=== PATIENT | male | born 1950 | race Caucasian/White ===

== ENCOUNTER → 2020-05-22 | Outpatient (CLI) | payer MEDICARE, MEDICAID | END | disposition home or self-care (01) | LOC: LAB 10:24 | PROVIDERS: ATTEND Specialist | DX: Z01.812 Encounter for preprocedural laboratory examination (principal); Z20.828 Contact with and (suspected) exposure to other viral communicable diseases | CPT/HCPCS: 87426 ==

== ENCOUNTER 2020-05-23 06:10 | Day surgery (SDC) | payer MEDICARE, MEDICAID ==
[2020-05-23] MEDS ORDERED: FENTANYL CITRATE/PF 50MCG/ML 5ML VIAL ONE (07:31)
[2020-05-23] MEDS ORDERED: MIDAZOLAM HCL 5 MG/5 ML VIAL ONE (07:31)
[2020-05-23] MEDS ORDERED: ASPIRIN/SOD BICARB/CITRIC ACID 324MG TAB EFF ONE (07:32)
[2020-05-23] MEDS ORDERED: LIDOCAINE HCL 1% 20ML VIAL (Pyxis) INJ ONE (07:32)
[2020-05-23] MEDS ORDERED: IODIXANOL 320MG/ML 100 ML BOTTLE IV ONE (07:33)
[2020-05-23] MEDS ORDERED: HEPARIN SODIUM 1,000 UNIT/1ML VIAL IV ONE (08:00)
[2020-05-23] MEDS ORDERED: NICARDIPINE 100MCG/ML 10ML VIAL (CATH LAB) IV ONE (08:00)
[2020-05-23] MEDS ORDERED: NITROGLYCERIN 50MCG/ML 10ML VIAL (CATH LAB) IV ONE (08:00)
[2020-05-23] MEDS ORDERED: FENTANYL CITRATE/PF 50MCG/ML 2ML VIAL ONE (08:46)
[2020-05-23] MEDS ORDERED: MIDAZOLAM HCL 2 MG/2 ML VIAL ONE (08:46)
== END 2020-05-23 13:00 | disposition home or self-care (01) ==
LOC: CCL 06:10
PROVIDERS: ATTEND Specialist
DX: R93.1 Abnormal findings on diagnostic imaging of heart and coronary circulation (principal); I25.10 Atherosclerotic heart disease of native coronary artery without angina pectoris; I11.0 Hypertensive heart disease with heart failure; I50.9 Heart failure, unspecified; E78.5 Hyperlipidemia, unspecified; E11.9 Type 2 diabetes mellitus without complications; Z86.73 Personal history of transient ischemic attack (TIA), and cerebral infarction without residual deficits; Z79.899 Other long term (current) drug therapy; Z98.890 Other specified postprocedural states
CPT/HCPCS: 93458; C1769; C1887; C1893; J1644; J2250; J3010; J3490; Q9967

== ENCOUNTER → 2020-09-14 | Outpatient (CLI) | payer MEDICARE, MEDICAID ==
[~2020-09-14] MED LIST: ASPI-1497 PO; ATOR40TA70 PO; METO-539 PO; SACU1TAB7 PO
== END | disposition home or self-care (01) ==
LOC: PVL 12:16
PROVIDERS: ATTEND Thoracic Surgery (Cardiothoracic Vascular Surgery)
DX: Z01.818 Encounter for other preprocedural examination (principal); I25.10 Atherosclerotic heart disease of native coronary artery without angina pectoris; I65.23 Occlusion and stenosis of bilateral carotid arteries; Z20.822 Contact with and (suspected) exposure to COVID-19
CPT/HCPCS: 71046; 87426; 93880

== ENCOUNTER 2022-02-26 08:28 | Day surgery (SDC) | payer MEDICARE, MEDICAID ==
[~2022-02-26] VITALS: Ht 190.5 cm; Wt 127.0 kg
[~2022-02-26 08:28] MED LIST changes: +ASPI-1160 PO; +CLOP75TA15 PO; +DOCU-138 MT; +FURO20TA4 PO; +HYDR-4001 MT; +SACU1TAB7 MT; +TAMS-11 PO
[2022-02-26] MEDS ORDERED: NITROGLYCERIN 50MCG/ML 10ML VIAL (CATH LAB) IV ONE (09:00)
[2022-02-26] MEDS ORDERED: NICARDIPINE 100MCG/ML 10ML VIAL (CATH LAB) IV ONE (09:00)
[2022-02-26] MEDS ORDERED: Vitamin D3 PO (09:25)
[2022-02-26] MEDS ORDERED: IODIXANOL 320MG/ML 100 ML BOTTLE IV ONE ×2 (10:40→11:26)
[2022-02-26] MEDS ORDERED: FENTANYL CITRATE/PF 50MCG/ML 2ML VIAL ONE ×2 (10:41→11:03)
[2022-02-26] MEDS ORDERED: LIDOCAINE HCL/PF 1% 10 MG/ML 5ML VIAL ONE (10:41)
[2022-02-26] MEDS ORDERED: HEPARIN SODIUM 1,000 UNIT/1ML VIAL IV ONE (10:41)
[2022-02-26] MEDS ORDERED: MIDAZOLAM HCL 2 MG/2 ML VIAL ONE ×2 (10:41→11:03)
[2022-02-26] MEDS ORDERED: HEPARIN 1000 UNITS/ML 10ML ONE (11:18)
[2022-02-26] MEDS ORDERED: MORPHINE SULFATE 2 MG/ML CPJ (NOT FOR IM USE) IV PRN (11:45)
[2022-02-26] MEDS ORDERED: ACETAMINOPHEN 325MG TABLET PO PRN (11:45)
[2022-02-26] MEDS ORDERED: ONDANSETRON HCL 4MG/2ML INJ IV PRN (11:45)
[2022-02-26] MEDS ORDERED: NALOXONE HCL 0.4MG/ML VIAL IV PRN (12:00)
== END 2022-02-26 18:00 | disposition home or self-care (01) ==
LOC: CCL 08:28
PROVIDERS: ATTEND Specialist
DX: I25.10 Atherosclerotic heart disease of native coronary artery without angina pectoris (principal); Z79.82 Long term (current) use of aspirin; Z79.899 Other long term (current) drug therapy; Z98.890 Other specified postprocedural states
CPT/HCPCS: 93455; 93571; C1769; C1887; C1893; J1644; J2250; J3010; J3490; Q9967; 99152; 99153; G0500

== ENCOUNTER → 2023-02-06 | Day surgery (SDC) | payer MEDICARE, MEDICAID ==
[~2023-02-06] VITALS: Ht 190.5 cm; Wt 123.4 kg
[~2023-02-06] MED LIST changes: +ACETAMINOPHEN 325MG TABLET PO PRN; +ATROPINE SULFATE 1MG/10ML SYR IV PRN; +CLOP-31 PO; +COR3 PO; +DAPA10TA PO; +FENTANYL CITRATE/PF 50MCG/ML 2ML VIAL ONE; +HEPARIN 1000 UNITS/ML 10ML ONE; +IODIXANOL 320MG/ML 100 ML BOTTLE IV ONE; +LIDOCAINE HCL 1% 10 MG/ML 10ML VIAL ONE; +LIDOCAINE HCL 1% 20ML VIAL (Pyxis) INJ ONE; +MIDAZOLAM HCL 2 MG/2 ML VIAL ONE; +ONDANSETRON HCL 4MG/2ML INJ IV PRN; +SACU1TAB4 PO; -SACU1TAB7 PO; +Vitamin D3 PO
== END | disposition home or self-care (01) ==
LOC: CCL 06:25
PROVIDERS: ATTEND Specialist
DX: I25.10 Atherosclerotic heart disease of native coronary artery without angina pectoris (principal); I10 Essential (primary) hypertension; I25.5 Ischemic cardiomyopathy; E78.5 Hyperlipidemia, unspecified; E66.9 Obesity, unspecified; Z95.1 Presence of aortocoronary bypass graft; Z68.35 Body mass index [BMI] 35.0-35.9, adult; Z86.73 Personal history of transient ischemic attack (TIA), and cerebral infarction without residual deficits; Z79.899 Other long term (current) drug therapy; Z98.890 Other specified postprocedural states
CPT/HCPCS: 93455; J3010; Q9967; J1644 ×2; J3490 ×2; J2250; Z7610 ×7; 99152; 99153; G0500